=== PATIENT | male | born 1955 | race African-American/Black ===

== ENCOUNTER → 2016-11-03 | Day surgery (SDC) | payer OTHER ==
--- NOTE | 2016-10-31 13:03 | History & Physical Pre-Op ---
General Information and HPI History of Present Illness: Adrian is a 61-year-old male with a long-standing and worsening complaint of painful hammertoes involving the fourth and fifth digits right foot and a painful exostosis dorsal left foot. The patient has undergone an extended course of conservative care, including shoe gear and activity modification, rest , immobilization and courses of NSAIDs. None of this is yielded him any significant relief. The patient presents today for preoperative surgical consultation and was referred to our office by Alireza Holland DPM. Allergies/Medications Allergies: Coded Allergies: No Known Allergies (10/28/16) Home Med list Aspirin (Ecotrin*) 81 MG TABLET.DR 1 TAB PO DAILY CAD (Reported) Clonazepam 0.5 MG TABLET 1 TAB PO BIDP ANXIETY (Reported) Clopidogrel Bisulfate (Plavix) 75 MG TABLET 1 TAB PO DAILY CARDIAC STENTS ( Reported) Escitalopram Oxalate (Lexapro) 20 MG TABLET 1 TAB PO DAILY ANXIETY (Reported) Gabapentin 600 MG TABLET 1 TAB PO TID PAIN (Reported) Lisinopril 5 MG TABLET 1 TAB PO DAILY HTN (Reported) Metoprolol Tartrate 25 MG TABLET 1 TAB PO BID CAD (Reported) Omeprazole 40 MG CAPSULE.DR 1 CAP PO DAILY GERD (Reported) Oxycodone HCl/Acetaminophen (Percocet 10-325 MG Tablet) 10 MG-325 MG TABLET 1 TAB PO 4 TIMES/DAY PAIN (Reported) Pravastatin Sodium (Pravachol) 40 MG TABLET 1 TAB PO DAILY CHOLESTEROL ( Reported) Tamsulosin HCl (Flomax) 0.4 MG CAP.ER.24H 1 CAP PO DAILY BPH (Reported) Past History Medical History Cardiovascular: CAD, hypertension Gastrointestinal: GERD Surgical History Pertinent Surgical History: spinal fusion Review of Systems Review of Systems: Unremarkable except for that noted in history of present illness Exam & Diagnostic Data Physical Exam: Lungs clear bilaterally. Heart sounds rate and rhythm regular. Lower extremity physical exam demonstrates intact pedal pulses bilaterally. Pulses dorsalis pedis and posterior tibial arteries are palpable bilaterally. Patient without any sensory motor deficits. Deep tendon reflexes grossly intact. Patient noted to have same and pain with palpation to the dorsal aspect of the proximal interphalangeal joints of the fourth and fifth digits right foot. Pain also noted with palpation to the dorsal aspect of the left foot. Assessment/Plan Assessment/Plan: Painful hammertoes and exostosis. A lengthy discussion reviewing both surgical and conservative options was held with the patient at bedside and the patient elected to go forward with surgery despite the risks. As Ranked By This Provider Problem List: 1. Other hammer toe(s) (acquired), right foot Attending MD Review Statement Attending Statement Attending MD Statement: examined this patient
[~2016-11-03] VITALS: Ht 175.3 cm; Wt 77.1 kg
[~2016-11-03] MED LIST: ASPIRIN EC81 M1 PO; CLONAZEPAM0.5 M2 PO; FLOMAX0.4 M1 PO; GABAPENTIN600 M1 PO; LEXAPRO20 M1 PO; LISINOPRIL5 M1 PO; METOPROLOL TART25 M1 PO; OMEPRAZOLE40 M1 PO; PERCOCET 10-321 EACH PO; PLAVIX75 M1 PO; PRAVACHOL40 M1 PO
--- NOTE | 2016-11-03 08:55 | Operative Report ---
Operative/Inv Procedure Report Surgery Date: 11/03/16 Name of Procedure: 1 ectomy dorsal left foot 1 ostectomy dorsal left foot 2 arthroplasty fourth toe right foot 3 arthroplasty fifth toe right foot 4 intraoperative administration of ankle block anesthesia Pre-Operative Diagnosis: 1 exostosis dorsal left foot 2 hammertoe fourth toe right foot 3 hammertoe fifth toe right foot Post-Operative Diagnosis: The same Estimated Blood Loss: scant Surgeon/Project Asst: BRICE ZUNIGA,RODERICK Holland DPM Anesthesia: moderate sedation, block Operative/Procedure Note Note: After obtaining informed consent the patient was brought to the operating room and placed on the operating table in the supine position. The patient was then securely fastened to the operating table utilizing a safety belt. After administration of IV sedation, 10 mL of 0.5% Marcaine plain was infiltrated about the patient's left and right ankles. 2 well-padded ankle tourniquets were placed about the patient's bilateral lower extremities. 2 g of Ancef were delivered intravenously times one dose. The right left foot within scrubbed prepped and draped in usual aseptic manner. Right lower extremity was elevated to exsanguinate the limb, at which point the ankle tourniquet was inflated 250 mmHg. Attention was directed dorsal aspect of the right fourth digit, where 2 converging transversely oriented semielliptical incisions centered over the proximal phalangeal joint were incised with a 15 blade. The ellipse of skin was freed and passed from the operative field. A transverse tenotomy was performed exposing the head of the proximal phalanx which was removed a sagittal bone saw. The extensor tendon was reapproximated 4-0 Vicryl and the skin edges reprepped with 4-0 nylon. 2 transversely oriented semielliptical incisions centered over the proximal interphalangeal joint of the fifth digit were incised with a 15 blade and deepened into the subtenons tissues. The ellipses skin was freed and passed from the operative field. A transverse tenotomy was then performed exposing the head of the proximal phalanx. The extensor tendon was reapproximated 4-0 Vicryl and the skin edges reapproximated 4-0 nylon. The incisions were dressed with Xeroform 4 x 4's Kerlix and an Shahzad wrap. The tourniquet was then deflated and the left lower extremity was elevated to exsanguinate the limb. The tourniquet was then inflated 250 mmHg. A 4 cm linear incision centered over the dorsal aspect of the first met cuneiform joint was incised with 15 blade. It was deepened into the subtenons tissues. All vital neurovascular structures were identified protected. The dissection was then carried down to the periosteum overlying the joint which was incised reflected. The exostosis was identified and removed with a sagittal bone saw. Any rough edges were smooth a bone rasp. The wound was irrigated with copious Svensson normal sterile saline. The deep tissues were then reapproximated with 4-0 Vicryl and the skin edges reapproximated 4-0 nylon. The incision was dressed with Xeroform 4 x 4's Kerlix and Shahzad wrap. The patient was noted to tolerate both procedure and anesthesia well and the patient was transported from the operating room to recovery with vital signs stable and fascia status intact to all digits bilateral feet.
== END ==
LOC: STS 02:06
DX: M89.9 Disorder of bone, unspecified (principal); M20.41 Other hammer toe(s) (acquired), right foot; I10 Essential (primary) hypertension; Z86.73 Personal history of transient ischemic attack (TIA), and cerebral infarction without residual deficits; I25.2 Old myocardial infarction; M19.072 Primary osteoarthritis, left ankle and foot; K21.9 Gastro-esophageal reflux disease without esophagitis
CPT/HCPCS: J0131; J1100; J2001; J2250